=== PATIENT | female | born 1965 | race Caucasian/White ===

== ENCOUNTER → 2017-11-16 | Day surgery (SDC) | payer BC ==
--- NOTE | 2017-11-17 15:03 | PATH ---
Surgical Pathology Report Patient Name: JONATHAN HAYDEN [facility]. Rec. #: [id number] /Age/Gender: 1965 (Age: 52) / F Account: [id number] Location: [facility] Taken: 11/16/2017 Received: 11/16/2017 Reported: 11/17/2017 Physicians: Kallie Bose M.D. Specimen(s) Received SUSPICIOUS ENHANCING 0.7CM MASS 9 O'CLOCK RIGHT BREAST Clinical History Ultrasound findings: Suspicious Final Diagnosis SUSPICIOUS ENHANCING 0.7 CM MASS 9 O'CLOCK RIGHT BREAST, BIOPSY: BENIGN BREAST TISSUE WITH FOCAL DUCT ECTASIA AND FIBROSIS. Electronically Signed Dahlia Navarrete M.D. Gross Description Received in formalin labeled "right breast," is a 2.0 x 1.7 x 0.3 cm aggregate of multiple degroot-yellow, irregular to cylindrical portions of fibroadipose tissue. The formalin is filtered and the specimen is entirely submitted in one cassette. Time to formalin fixation: 2 minutes Total formalin fixation time: Approximately 6 hours. /11/16/2017 saudi11/16/2017
== END | disposition home or self-care (01) ==
LOC: FRADUS-SUR 10:11
PROVIDERS: ATTEND Surgery Surgical Oncology
PROC: 0HBT3ZX Excision of Right Breast, Percutaneous Approach, Diagnostic (ICD-10-PCS; principal; 2017-11-16)
DX: N60.21 Fibroadenosis of right breast (principal); N63.10 Unspecified lump in the right breast, unspecified quadrant
CPT/HCPCS: 19085; 77065-TC; 88305-TC; A4648; C1887